=== PATIENT | female | born 1960 ===

== ENCOUNTER 2018-04-04 09:59 | Emergency (ER) | payer SELFPAY ==
--- NOTE | 2018-04-04 12:44 | UC ---
Ear Complaint HPI - HPI Summary HPI Summary: cerumen impaction right ear---seeking ear irrigation - History of Current Complaint Chief Complaint: UCEar Stated Complaint: EAR COMPLAINT Time Seen by Provider: 04/04/18 12:39 Hx Obtained From: Patient ?: No Onset/Duration: Gradual Onset Pain Intensity: 0 Pain Scale Used: 0-10 Numeric - Allergies/Home Medications Allergies/Adverse Reactions: Allergies Allergy/AdvReac Type Severity Reaction Status Date / Time piritramide Allergy See Comment Verified 04/04/18 11:53 Home Medications: Home Medications Escitalopram (NF) [Lexapro 5 mg (NF)] 5 mg PO DAILY 04/04/18 [History Confirmed 04/04/18] PMH/Surg Hx/FS Hx/Imm Hx Previously Healthy: No Psychological History: Depression - Surgical History Surgical History: None - Family History Known Family History: Positive: None - Social History Occupation: Unemployed Lives: With Family Alcohol Use: None Substance Use Type: None Smoking Status (MU): Light Every Day Tobacco Smoker Type: Cigarettes Have You Smoked in the Last Year: Yes Cessation Counseling: Patient Advised to Stop Review of Systems Constitutional: Negative Skin: Negative Eyes: Negative ENT: Negative, Ear Ache - right ear feels clogged Respiratory: Negative Cardiovascular: Negative Gastrointestinal: Negative Genitourinary: Negative Motor: Negative Neurovascular: Negative Musculoskeletal: Negative Neurological: Negative Psychological: Negative Is Patient Immunocompromised?: No All Other Systems Reviewed And Are Negative: Yes Physical Exam Triage Information Reviewed: Yes Appearance: Well-Appearing, No Pain Distress, Well-Nourished Vital Signs: Initial Vital Signs Temp 97.7 F 04/04/18 11:44 Pulse 71 04/04/18 11:44 Resp 18 04/04/18 11:44 BP 105/66 04/04/18 11:44 Pulse Ox 97 04/04/18 11:44 Vital Signs Reviewed: Yes Eye Exam: Normal Eyes: Positive: Conjunctiva Clear ENT Exam: Normal ENT: Positive: Normal ENT inspection, Hearing grossly normal, Pharynx normal, TMs normal - left, Uvula midline, Other - right ear with cerumen impaction-ear flushed TM wnl after irragation. Negative: Nasal congestion, Tonsillar swelling , Trismus, Muffled voice, Hoarse voice, Dental tenderness, Sinus tenderness Dental Exam: Normal Neck exam: Normal Neck: Positive: 1 Respiratory Exam: Normal Respiratory: Positive: Chest non-tender, No respiratory distress, No accessory muscle use Cardiovascular Exam: Normal Cardiovascular: Positive: RRR, Pulses Normal, Brisk Capillary Refill Musculoskeletal Exam: Normal Musculoskeletal: Positive: Strength Intact, ROM Intact, No Edema Neurological Exam: Normal Neurological: Positive: Alert, Muscle Tone Normal Psychological Exam: Normal Skin Exam: Normal Ear Complaint Course/Dx - Course Course Of Treatment: ear irragated with good relief of symptoms - Differential Dx/Diagnosis Provider Diagnoses: right ear cerumen impaction resolved Discharge - Sign-Out/Discharge Documenting (check all that apply): Patient Departure - Discharge Plan Condition: Stable Disposition: HOME Patient Education Materials: Cerumen Impaction (ED) Referrals: Care [facility] [Outside] - If Needed - Billing Disposition and Condition Condition: STABLE Disposition: Home
== END 2018-04-04 13:13 | disposition home or self-care (01) ==
LOC: UCEAST 09:59
DX: H61.21 Impacted cerumen, right ear (principal); F32.9 Major depressive disorder, single episode, unspecified; Z88.5 Allergy status to narcotic agent; F17.210 Nicotine dependence, cigarettes, uncomplicated
CPT/HCPCS: 99202; G0463